=== PATIENT | female | born 1960 | race Caucasian/White ===

== ENCOUNTER 2018-05-03 11:51 | Observation (INO) ==
[2018-05-03 20:13] LABS: Creatine Kinase 75 U/L (26-192)
[2018-05-03] MEDS ORDERED: Ketorolac Inj 30 MG/ML (IVP) Vial IV.PUSH PRN (21:28)
[2018-05-04 07:57] VITALS: RESP 16; TEMP 98; O2SAT 96
--- NOTE | 2018-05-04 08:59 | P.HPCA ---
History of Present Illness Primary Care Physician: UNKNOWN Chief Complaint: Chest pain History of Present Illness: This is a 58-year-old female with history of "borderline diabetes" and tobacco abuse that presents to ED with complaint of nonproductive cough and chest pain that began yesterday about 11 in the morning. The discomfort has essentially been there constantly but coughing seems to worsen it. She had no fevers but has had the chills. Denies recent travel. Little bit of shortness of breath. No nausea or diaphoresis. Denies history of heart disease, cannot recall any recent stress testing. Past medical history: "Borderline diabetes" and tobacco abuse. Denies hypertension, hyperlipidemia, and CAD. Family history: Denies family history of CAD. Social history patient smokes 1 pack of cigarettes daily and has done so for approximately 30-35 years. - Diagnosis (1) Atypical chest pain (2) Tobacco abuse (3) Bronchitis Review of Systems General: Patient denies fevers, chills, and recent travel. HEENT: Patient denies headache, sore throat, difficulty swallowing. Cardiovascular: Has the chest discomfort as mentioned above. Denies sensation of heart beating rapidly or irregularly. No syncope. Denies diaphoresis. Respiratory: Little bit of shortness of breath. Essentially nonproductive cough , rarely has had a clearish colored mucus. Denies inspirational chest discomfort. Denies wheezing or hemoptysis. GI: Patient denies nausea, vomiting, diarrhea, abdominal pain, bloody stools. Musculoskeletal: Patient denies joint pain or edema. Denies calf pain or edema. Neurovascular: Patient denies numbness, tingling, weakness in extremities. Denies headache. Endocrine: Denies polyuria and polydipsia. Hematologic: Denies easy bruising. Skin: Denies rash or itching. 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 Reason for Use: Calm Down, Sleep Medications and Allergies Active Medications: Active Medications Albuterol (Duoneb Neb (Prn)) 1 ampul NEB Q4HR NEB PRN PRN Reason: SHORTNESS OF BREATH/WHEEZING Ketorolac Tromethamine (Toradol Inj) 30 mg IV.PUSH Q6H PRN PRN Reason: PAIN SCALE 1 TO 10 Stop: 05/08/18 21:27 Last Admin: 05/04/18 06:13 Dose: 30 mg Allergies Allergy/AdvReac Type Severity Reaction Status Date / Time penicillin G Allergy Severe Anaphylaxis Verified 05/03/18 12:24 Home Medications Medication Instructions Recorded Confirmed Type No Known Home Medications 05/03/18 05/03/18 History Exam Vital signs: Vital Signs 05/03/18 19:55 05/03/18 20:25 05/03/18 22:02 Temperature 97.7 F Pulse Rate 75 58 L Respiratory Rate 18 Blood Pressure 118/59 L Pulse Oximetry 96 96 05/03/18 23:12 05/04/18 03:25 05/04/18 07:24 Temperature 97.9 F 97.9 F Pulse Rate 73 59 L Respiratory Rate 18 17 Blood Pressure 115/57 L 112/53 L Pulse Oximetry 95 97 97 05/04/18 07:56 Temperature 98.0 F Pulse Rate 59 L Respiratory Rate 16 Blood Pressure 113/58 L Pulse Oximetry 96 Intake & Output 05/03/18 05/04/18 05/04/18 18:59 06:59 18:59 Intake Total 120 / 120 Balance 120 / 120 Intake: Oral 120 / 120 Other: # Voids 4 Date of Last Bowel Movement 05/03/18 Narrative: GENERAL: This is a well-nourished, well-developed patient, in no apparent distress. Patient speaks in clear complete sentences. Patient is pleasant. HEENT: Head is atraumatic and normocephalic. Neck is supple without lymphadenopathy and trachea is midline. No JVD or carotid bruits. CARDIOVASCULAR: Regular rate and rhythm without murmurs, gallops, or rubs. RESPIRATORY: Clear to auscultation. Breath sounds equal bilaterally. No wheezes , rales, or rhonchi. Chest wall is nontender. No use of accessory muscles. GASTROINTESTINAL: Abdomen is nontender, nondistended. Abdomen soft. No obvious pulsatile mass or bruit. No CVA tenderness. Strong femoral pulses bilaterally. Normal bowel sounds in all quadrants. MUSCULOSKELETAL: Patient is moving upper and lower extremities freely. No calf tenderness or edema, no Homans sign. Strong pulses in upper and lower extremities. NEUROLOGICAL: Patient is alert and oriented. Cranial nerves 2-12 are grossly intact. No focal deficits and speech is clear. SKIN: No rash and turgor is normal. Results Cardiac Enzymes 05/03/18 Range/Units 19:15 Troponin I Less than 0.02 L (0.02-0.05) ng/mL Intake and Output 05/03/18 05/04/18 05/04/18 22:59 06:59 14:59 Intake Total 120 / 120 Balance 120 / 120 Intake: Oral 120 / 120 Other: # Voids 4 Date of Last Bowel Movement 05/03/18 EKG interpretations - EKG EKG shows: sinus rhythm (EKG sinus rhythm without significant ST segment depressions or elevations.) Caprini VTE Risk Assessment Caprini VTE Risk Assessment: No/Low Risk (score <= 1) Caprini Risk Assessment Model: Point Value = 1 Point Value = 2 Point Value = 3 Point Value = 5 Age 41-60 Minor surgery BMI > 25 kg/m2 Swollen legs Varicose veins or History of unexplained or recurrent spontaneous Oral contraceptives or hormone replacement Sepsis (< 1 month) Serious lung disease, including pneumonia (< 1 month) Abnormal pulmonary function Acute myocardial infarction Congestive heart failure (< 1 month) History of inflammatory bowel disease Medical patient at bed rest Age 61-74 Arthroscopic surgery Major open surgery (> 45 min) Laparoscopic surgery (> 45 min) Malignancy Confined to bed (> 72 hours) Immobilizing plaster cast Central venous access Age >= 75 History of VTE Family history of VTE Factor V Leiden Prothrombin [id number] Lupus anticoagulant Anticardiolipin antibodies Elevated serum homocysteine Heparin-induced thrombocytopenia Other congenital or acquired thrombophilia Stroke (< 1 month) Elective arthroplasty Hip, pelvis, or leg fracture Acute spinal cord injury (< 1 month) Prophylaxis Regimen: Total Risk Factor Score Risk Level Prophylaxis Regimen 0-1 Low Early ambulation 2 Moderate Order ONE of the following: *Sequential Compression Device (SCD) *Heparin 5000 units SQ BID 3-4 Higher Order ONE of the following medications: *Heparin 5000 units SQ TID *Enoxaparin/Lovenox 40 mg SQ daily (WT < 150 kg, CrCl > 30 mL/min) *Enoxaparin/Lovenox 30 mg SQ daily (WT < 150 kg, CrCl > 10-29 mL/min) *Enoxaparin/Lovenox 30 mg SQ BID (WT < 150 kg, CrCl > 30 mL/min) AND/OR *Sequential Compression Device (SCD) 5 or more Highest Order ONE of the following medications: *Heparin 5000 units SQ TID (Preferred with Epidurals) *Enoxaparin/Lovenox 40 mg SQ daily (WT < 150 kg, CrCl > 30 mL/min) *Enoxaparin/Lovenox 30 mg SQ daily (WT < 150 kg, CrCl > 10-29 mL/min) *Enoxaparin/Lovenox 30 mg SQ BID (WT < 150 kg, CrCl > 30 mL/min) AND *Sequential Compression Device (SCD) Assessment and Plan - Assessment (1) Atypical chest pain Code(s): R07.89 - Other chest pain Status: Acute (2) Tobacco abuse Code(s): Z72.0 - Tobacco use Status: Acute (3) Bronchitis Code(s): J40 - Bronchitis, not specified as acute or chronic Status: Acute - Plan * Atypical chest pain: Patient has had serial cardiac enzymes and EKGs for ruling out purposes and has been seen by Dr. Wong of cardiology in the chest pain center. She will undergo a Stan protocol ETT and will be discharged home if her stress test is nonischemic. She should follow-up with PCP. Return to ED for interval issues. * Bronchitis: Rx Zithromax and prednisone. Patient has been counseled on the importance of smoking cessation. * Tobacco abuse: Patient counseled on the importance of smoking cessation. Patient is stable at this time. She is agreeable to this plan. H&P: Quality - VTE Deep Vein Thrombosis/Pulmonary Embolism Present on Admission: No
[2018-05-04] MEDS ORDERED: Regadenoson Inj 0.4 MG/5 ML Syringe IV.PUSH ONE (11:36)
[2018-05-04 12:12] VITALS: BP 115/62; PULSE 68
--- NOTE | 2018-05-04 14:27 | NM ---
EXAM DATE: 05/04/2018 2:21 PM EST AGE/SEX: 58 years / Female INDICATIONS:Angina. Coronary artery disease Chest pain. CLINICAL DATA: This is the patient's initial encounter. Patient reports that signs and symptoms have been present for 2 days and indicates a pain score of 2/10. MEDICAL/SURGICAL HISTORY: Diabetes mellitus type II. Hysterectomy. COMPARISON: [facility], CHEST 1V SINGLE AP, 05/03/2018. . DOSE: 8.1 mCi Tc 99m Myoview at rest 26.8 mCi [id number] at stress 0.4 mg Lexiscan STRESS SYMPTOMS: Abdominal discomfort, chest tightness. EJECTION FRACTION: 56 % TECHNIQUE: The patient underwent pharmacologic stress with infusion of prescribed dose. Continuous ECG tracing was monitored during stress. Gated SPECT imaging was performed after stress and conventi onal SPECT imaging was performed at rest. The examination was performed on a SPECT/CT scanner, both attenuation and non-corrected datasets were reviewed. FINDINGS: Distribution: The maximum perfused segment at stress is in the anterolateral wall. Perfusion Study: The pattern of perfusion at stress is within normal limits. Gated Study: There are intact wall motion and wall thickening without hypokinetic or dyskinetic segm ents. The ejection fraction is calculated at 56%. RISK CATEGORY: Low (<1% Annual Mortality Rate) CONCLUSION: 1. Unremarkable study. Electronically signed by: Farooq Cohn MD Board Certified Radiologist 05/04/2018 2:26 PM EST
--- NOTE | 2018-05-04 16:31 | TR ---
Date Performed: 05/04/2018 Time Performed: 10:54:16 DOCTOR: Maddie Wong DRUG LIST: CLINICAL HISTORY: REASON FOR TEST: REASON FOR ENDING: OBSERVATION: CONCLUSION: GILMAR PROTOCOL. NO CP. TEST STOPPED AFTER EXCEEDING GOAL HR SECONDARY TO SOB AND LEG FATIGUE. OCCASIONAL PVCS.Maximum EM=915 % Max HR Achieved=99.0% Maximum MP=117/80 Total Exercise Octavio e=10:00 COMMENTS: transient ST depression
--- NOTE | 2018-05-04 16:34 | TR ---
Date Performed: 05/04/2018 Time Performed: 13:25:58 DOCTOR: Maddie Wong DRUG LIST: CLINICAL HISTORY: REASON FOR TEST: REASON FOR ENDING: OBSERVATION: CONCLUSION: Lexiscan stress test was performed under standard four minute protocol. Radionuclid e was injected one minute prior to ending the test. No definitive electrocardiographic abormalities w ere present to suggest ischemia. Nuclear imaging and interpretation are pending. COMMENTS: No definitive ischemia
--- NOTE | 2018-05-06 01:24 | ECG ---
Date Performed: 05/03/2018 Time Performed: 19:49:06 PTAGE: 58 years EKG: Sinus rhythm NORMAL ECG NO PREVIOUS TRACING DOCTOR: Rommel Seth Interpretating Date/Time 05/06/2018 01:22:59
== END 2018-05-04 15:47 | disposition home or self-care (01) ==
LOC: NEPGCP 11:51 → NEDDLT 11:51
PROVIDERS: ADMIT Internal Medicine Cardiovascular Disease; ATTEND Internal Medicine Cardiovascular Disease
DX: Z90.710 Acquired absence of both cervix and uterus; R94.31 Abnormal electrocardiogram [ECG] [EKG]; R07.89 Other chest pain; F17.200 Nicotine dependence, unspecified, uncomplicated; J40 Bronchitis, not specified as acute or chronic
CPT/HCPCS: 71010; 71045; 78452; 80053; 80307; 81001; 82550; 83520; 83690; 83880; 84484; 85025; 85379; 90774; 90784; 93005; 93017; 96374; 99285; A9502; C8952; G0378; J1885; J2270; J2785; Q9969